=== PATIENT | male | born 1950 | race Hispanic/Latino ===

== ENCOUNTER 2020-06-13 13:13 | Emergency (ER) | payer OTHER, SELFPAY ==
[2020-06-13 14:01] LABS: #Basophils 0.1 thou/uL (0.0-0.2); #Eosinphils 0.4 thou/uL (0.0-0.7); #Lymphocytes 2.1 thou/uL (1.20-3.40); #Monocytes 0.8 thou/uL (0.11-0.59); #Neutrophils 4.5 thou/uL (1.40-6.50); %Basophils 0.8 % (0.0-1.0); %Eosinophils 5.7 % (0.0-10.0); %Lymphocytes 26.3 % (21.0-51.0); %Monocytes 10.1 % (0.0-10.0); %Neutrophils 57.1 % (42.0-75.0); Hemoglobin 13.1 g/dL (14.0-18.0); Mean Corpuscular HGB CONC 33.3 g/dL (32.0-36.0); Mean Corpuscular Hemoglobin 29.4 pg (27.0-31.0); Mean Corpuscular Volume 88.2 fL (78.0-98.0); Mean Platelet Volume 9.1 fL (7.4-10.4); Platelet Count 203 thou/uL (130-400); RBC Distribution Width 12.2 % (11.5-14.5); Red Blood Cell (RBC) Count 4.47 mill/uL (4.70-6.10); White Blood Cell (WBC) Count 7.8 thou/uL (4.8-10.8)
[2020-06-13 14:19] LABS: ALT (SGPT) 24 U/L (8-55); AST (SGOT) 17 U/L (5-34); Albumin 4.2 g/dL (3.4-4.8); Alkaline Phosphatase 93 U/L (40-110); Anion Gap 13 mmol/L (10-20); BUN (Urea Nitrogen) 16 mg/dL (8.4-25.7); Bilirubin, Total 0.6 mg/dL (0.2-1.2); Calc. Creatinine Clearance 0 mL/min (70-130); Carbon Dioxide 26 mmol/L (23-31); Chloride 104 mmol/L (98-107); Estimated GFR-MDRD 86; Globulin 3.1 g/dL (2.4-3.5); Glucose 162 mg/dL (80-115); Potassium 4.1 mmol/L (3.5-5.1); Protein, Total 7.3 g/dL (5.8-8.1); Sodium 139 mmol/L (136-145)
--- NOTE | 2020-06-13 14:40 | RAD ---
PORTABLE CHEST: Date: 06/13/2020 PROVIDED CLINICAL HISTORY: Chest pain and leg swelling. FINDINGS: Cardiac and mediastinal silhouette is within normal limits. There is elevation of the right hemidiaph ragm and blunting of the right costophrenic angle with multiple remote healed posterolateral right-si ded rib fractures noted. There is no evidence for focal consolidation or pneumothorax. IMPRESSION: Elevation of right hemidiaphragm and blunting of the right costophrenic angle, presumably chronic giv en the adjacent rib findings. Pleural fluid cannot be entirely excluded on the basis of this study. C orrelate with lateral view as indicated. POS: [id number]
[2020-06-13] MEDS ORDERED: Acetaminophen 500 MG TAB ONE (15:33)
== END 2020-06-13 15:48 ==
LOC: ERS 13:13 → EEVIPCON 13:13 → ERS 15:48
DX: R60.0 Localized edema (principal); E11.9 Type 2 diabetes mellitus without complications; I10 Essential (primary) hypertension; E78.5 Hyperlipidemia, unspecified
CPT/HCPCS: 36415; 71045; 80053; 83880; 84484; 85025; 93005

== ENCOUNTER 2020-07-14 13:02 | Emergency (ER) | payer OTHER, SELFPAY ==
[2020-07-14 14:29] LABS: Bilirubin Negative (Negative); Blood, Urine Negative (Negative); Clarity Clear (Clear); Glucose, Urine (Dipstick) Greater than 1000 mg/dL (Negative); Ketone, Urine Negative (Negative); Leukocyte Negative Leu/uL (Negative); Nitrite Negative (Negative); Protein, Urine (Dipstick) 10 mg/dL (Neg-Trace); Specific Gravity, Urine 1.029 (1.002-1.036); Urobilinogen Normal mg/dL (Less than 2)
[2020-07-14] MEDS ORDERED: Clotrimazole 1% Cream 15 GM TUBE TOP SCH (14:30)
[2020-07-14] MEDS ORDERED: Fluconazole 100 MG TAB PO SCH (14:30)
[2020-07-14] MEDS ORDERED: Clotrimazole 1 % Cream 30 GM TUBE TOP SCH (15:00)
== END 2020-07-14 15:30 ==
LOC: ERS 13:02
DX: B37.42 Candidal balanitis (principal); E11.9 Type 2 diabetes mellitus without complications; I10 Essential (primary) hypertension; Z79.84 Long term (current) use of oral hypoglycemic drugs; Z79.899 Other long term (current) drug therapy
CPT/HCPCS: 81003; 87086; 99283